=== PATIENT | female | born 1960 | race Caucasian/White ===

== ENCOUNTER → 2021-04-27 | Outpatient (CLI) | payer BC ==
--- NOTE | 2021-04-27 11:30 | MR ---
EXAMINATION TYPE: MR angio head wo con DATE OF EXAM: 04/27/2021 COMPARISON: None HISTORY: Family Hx ischemic heart disease, Family hx of anuerysm, Headaches TECHNIQUE: Time of flight images focusing on the [place] were performed without contrast. FINDINGS: Within the intracerebral arterial circulation, there is no sizable aneurysm sac, vascular m alformation or evidence for occlusive disease. IMPRESSION: No significant abnormality seen
--- NOTE | 2021-04-27 11:44 | MR ---
EXAMINATION TYPE: MR brain wo/w con DATE OF EXAM: 04/27/2021 COMPARISON: None HISTORY: Family Hx ischemic heart disease, Family hx of anuerysm, Headaches TECHNIQUE: Multiplanar, multisequence images of the brain and brainstem is performed without and with IV contras t, utilizing 12 mL intravenous Gadavist . FINDINGS: On the T1-weighted sagittal images, the midline structures including the craniovertebral junction rel ationships are normal. The ventricles, basal cisterns and sulci over the convexities are within normal limits and there is n o mass effect or shift of midline structures. Diffusion-weighted images, there is no diffusion restriction or acute ischemic event. On the FLAIR images, there are a few multiple focal areas of abnormal signal intensity in the white m atter consistent with chronic ischemic white matter change. Following contrast administration, there is no pathologic enhancement throughout the brain parenchyma incidental note is made of a small venous angioma in the left frontal lobe. The posterior fossa including the brainstem, fourth ventricle and cerebellar pontine angles appear no rmal. The intraorbital contents are normal and symmetric. There are mild chronic inflammatory changes in th e paranasal sinuses. The mastoid air cells are well aerated. IMPRESSION: Mild chronic ischemic white matter changes with no other significant abnormality seen.
== END | disposition home or self-care (01) ==
LOC: RADMRIMAIN 10:25
PROVIDERS: ATTEND Psychiatry & Neurology Neurology
DX: I67.82 Cerebral ischemia (principal); Z82.49 Family history of ischemic heart disease and other diseases of the circulatory system
CPT/HCPCS: 70544; 70553; A9585

== ENCOUNTER → 2024-05-11 | Outpatient (CLI) | payer MEDICARE ==
--- NOTE | 2024-05-12 12:38 | MM ---
Reason for Exam: Screening (asymptomatic). Last screening mammogram was performed 12 month(s) ago. Patient History: Menarche at age 13. First Full-Term at age 21. Risk Values: Sommer 5 year model risk: 1.4%. NCI Lifetime model risk: 5.8%. Prior Study Comparison: 10/15/2021 Bilateral Screening Mammogram, [facility]. 04/17/2023 Bilateral Screening Mammogram, [facility]. Tissue Density: There are scattered areas of fibroglandular density. Findings: Analyzed By CAD. Benign oil cyst calcifications redemonstrated on the left. There is no suspicious group of microcalcifications or new suspicious mass in either breast. Overall Assessment: Negative, BI-RAD 1 Management: Screening Mammogram of both breasts in 1 year. . Patient should continue monthly self-breast exams. A clinical breast exam by your physician is recommended on an annual basis. This exam should not preclude additional follow-up of suspicious palpable abnormalities. Note on Sommer scores and lifetime risk: 1. A Sommer score greater than 3% is considered moderate risk. If this is the case, consider specialist referral to assess eligibility for a risk reducing agent. 2. If overall lifetime risk for the development of breast cancer is 20% or higher, the patient may qualify for future screening with alternating mammogram and breast MRI. [facility], , 05/12/2024 12:35 PM. Electronically signed and approved by: Dee Covington M.D. Radiologist
== END | disposition home or self-care (01) ==
LOC: RADMAMWWP 11:31
PROVIDERS: ATTEND Family Medicine
CPT/HCPCS: 77063; 77067